=== PATIENT | male | born 1990 | race Caucasian/White ===

== ENCOUNTER → 2017-07-28 | Outpatient (CLI) | payer OTHER | LOC: COL.RAD 08:06 | DX: R20.0 Anesthesia of skin (principal); R20.2 Paresthesia of skin | CPT/HCPCS: A9585 ==

== ENCOUNTER 2017-09-19 14:00 | Outpatient (RCR) | payer OTHER | END 2017-09-29 11:22 | disposition home or self-care (01) | LOC: WSOT 14:00 | DX: M77.9 Enthesopathy, unspecified (principal) ==

== ENCOUNTER 2017-09-21 13:15 | Outpatient (RCR) | payer OTHER | END 2017-09-23 08:19 | disposition home or self-care (01) | LOC: WSC 13:15 | DX: R29.3 Abnormal posture (principal); M53.84 Other specified dorsopathies, thoracic region ==